=== PATIENT | female | born 1960 | race Caucasian/White ===

== ENCOUNTER 2018-12-04 20:46 | Emergency (ER) | payer BC ==
[~2018-12-04] VITALS: Ht 167.6 cm; Wt 97.6 kg
[2018-12-04] MEDS ORDERED: LIDOCAINE 2% 20 ML VIAL. IJ ONE (21:45)
[2018-12-04] MEDS ORDERED: LIDOCAINE 2%/EPI 1:100,000 20 ML VIAL. ONE (22:11)
[2018-12-04] MEDS ORDERED: LIDOCAINE 1% Multi-Dose 20 ML VIAL. ONE (22:11)
[2018-12-04] MEDS ORDERED: LIDOCAINE 1%/EPI 1:100,000 20 ML VIAL. ONE (22:11)
[2018-12-04] MEDS ORDERED: DIPHTH,PERTUSS(ACELL),TET TOX 0.5 ML DISP.SYRIN. VAX IM ONE (22:45)
[2018-12-04] MEDS ORDERED: AMOX1TAB61 PO (22:49)
--- NOTE | 2018-12-04 22:49 | PHYS DOC ---
Adult General Chief Complaint Chief Complaint: ANIMAL BITE HPI HPI Patient is a 58 year old female who presents with complaint of dog bite to the right forearm. The patient states that she was bitten by her own dog after she was trying to help her dog get untangled from another dog. The dog's accidenta lly tangled or collars together and she was trying to help them when one of the dogs bit her on the right forearm. Patient suffered a laceration to the volar aspect of the right forearm as well as an additional adjacent puncture wound. Bleeding controlled prior to arrival. Patient states that her dogs vaccinations are up-to-date. States that her tetanus vaccination was last given approximately 7 years ago. Denies any difficulty with range of motion in the right hand or wrist. Due to the when the patient came to the emergency department for concern of need for closure. Review of Systems Review of Systems Constitutional: Denies fever or chills [] Eyes: Denies change in visual acuity, redness, or eye pain [] HENT: Denies nasal congestion or sore throat [] Respiratory: Denies cough or shortness of breath [] Cardiovascular: Denies chest pain or edema[] GI: Denies abdominal pain, nausea, vomiting, bloody stools or diarrhea [] : Denies dysuria or hematuria [] Musculoskeletal: Denies back pain or joint pain [] Integument: Laceration to right forearm[] Neurologic: Denies headache, focal weakness or sensory changes [] All other systems were reviewed and found to be within normal limits, except as documented in this note. Current Medications Current Medications Current Medications Medications (Trade) Dose Ordered Sig/[facility] Start Time Stop Time Status Last Admin Dose Admin Lidocaine HCl 20 ml STK-MED ONCE 12/04/18 22:11 12/04/18 22:12 DC Lidocaine/ Epinephrine (Xylocaine 1%-Epi 1:100,000) 20 ml STK-MED ONCE 12/04/18 22:11 12/04/18 22:12 DC Lidocaine/ Epinephrine (Xylocaine 2%-Epi 1:100,000) 20 ml STK-MED ONCE 12/04/18 22:11 12/04/18 22:12 DC Allergies Allergies Allergies Coded Allergies Type Severity Reaction Last Updated Verified No Known Drug Allergies 12/04/18 No Physical Exam Physical Exam Constitutional: Well developed, well nourished, no acute distress, non-toxic appearance. [] HENT: Normocephalic, atraumatic, bilateral external ears normal, oropharynx moist, no oral exudates, nose normal. [] Eyes: PERRLA, EOMI, conjunctiva normal, no discharge. [] Neck: Normal range of motion, no tenderness, supple, no stridor. [] Cardiovascular:Heart rate regular rhythm, no murmur [] Lungs & Thorax: Bilateral breath sounds clear to auscultation [] Abdomen: Bowel sounds normal, soft, no tenderness, no masses, no pulsatile masses. [] Skin: Warm, dry, no erythema, no rash. [] Back: No tenderness, no CVA tenderness. [] Extremities: No tenderness, 3 cm transverse laceration to the distal third of the volar aspect of right forearm with exposed subcutaneous tissue, no obvious tendon injury, adjacent puncture wound along medial aspect of the distal third of the right forearm, no cyanosis, no clubbing, ROM intact, no edema. [] Neurologic: Alert and oriented X 3, normal motor function, normal sensory function, no focal deficits noted. [] Current Patient Data Vital Signs Vital Signs Date Time Temp Pulse Resp B/P (MAP) Pulse Ox O2 Delivery O2 Flow Rate FiO2 12/04/18 23:43 97.8 111 20 93 Lab Results Not performed EKG EKG Not performed[] Radiology/Procedures Radiology/Procedures Indication: Right forearm laceration Procedure: The patient was placed in the appropriate position and anesthesia ar ound the laceration was achieved with injection of lidocaine 2%. The area was then irrigated with saline. The laceration was closed using 4-0 Ethilon simple interrupted sutures. The wound area was then dressed with Telfa and Kerlex. Total repaired wound length: 3 cm. Other Items: Total suture count: 3 The patient tolerated the procedure without difficulty. Complications: None.[] Course & Med Decision Making Course & Med Decision Making Pertinent Labs and Imaging studies reviewed. (See chart for details) The patient underwent laceration repair as outlined in the procedure note. Tetanus immunization was updated in the emergency department. The patient was discharged with prescription for Augmentin for infection prophylaxis. Advised follow-up in 10-12 days with primary doctor for removal of sutures. Patient notes that she is having surgery on Saturday on her hip. Advised that she call her orthopedic surgeon tomorrow to discuss her recent visit to see if she is still candidate for surgery on Saturday. Advised return to emergency department for any worsening symptoms per patient was understanding and in agreement with treatment plan.[] Dragon Disclaimer Dragon Disclaimer This electronic medical record was generated, in whole or in part, using a voice recognition dictation system. Departure Departure: Impression: Primary Impression: Dog bite of forearm Disposition: HOME, SELF-CARE Condition: IMPROVED Referrals: MARC BRIGGS MD (PCP) Patient Instructions: Animal Bite, Laceration Care, Adult Additional Instructions: Follow-up with your primary doctor in 10-12 days for removal of your stitches. Return to the emergency department for any worsening symptoms. Scripts Amoxicillin/Potassium Clav (AUGMENTIN [id number] TABLET) 1 Each Tablet 1 TAB PO BID, #10 TAB Prov: LARRY TORREZ MD 12/04/18 Problem Qualifiers Primary Impression: Dog bite of forearm Encounter type: initial encounter Laterality: right Qualified Codes: S51.851A - Open bite of right forearm, initial encounter; W54.0XXA - Bitten by dog, initial encounter LARRY TORREZ MD December 04, 2018 22:49
[2018-12-04] MEDS ORDERED: AMOXICILLIN/K CLAV 875/125MG TABLET. PO ONE (23:00)
[2018-12-04 23:43] VITALS: BP 153/93
== END 2018-12-04 22:52 | disposition home or self-care (01) ==
LOC: ER 21:02
DX: S51.811A Laceration without foreign body of right forearm, initial encounter (principal); W54.0XXA Bitten by dog, initial encounter; Y93.89 Activity, other specified; Y92.89 Other specified places as the place of occurrence of the external cause; Y99.8 Other external cause status
CPT/HCPCS: 12002; 90471; 90715; 99283; J2001

== ENCOUNTER → 2019-02-03 | Outpatient (CLI) | payer BC ==
[~2019-02-03] MED LIST: AMOX1TAB61 PO
--- NOTE | 2019-02-03 10:34 | RAD ---
Bone densitometry 02/03/2019 1:00 PM Indication: Adult fracture. History of osteoporosis. Comparison Study: Bone densitometry May 17, 2013. Discussion: Bone Densitometry was performed with dual photon absorption of the lumbar spine and proximal femurs. Lumbar Spine: Bone average density is 1.115 g/cm2 for L1-L4. T-Score is -0.5. (Prior T score at L2-L4 is -2.3) Right femoral neck: Bone average density is 0.732g/cm2. T-Score is -1.7. (Prior T score of the proximal right femur -0.8) IMPRESSION: Improved bone mineral density, in the lumbar spine. Persistent osteopenia based on bone mineral density measurements of the right femoral neck which have decreased in the interim. Note: Definitions established by the World Health Organization: Normal: T-score is -1.0 or above. Osteopenia: T-score is between -1.0 and -2.5. Osteoporosis: T-score is -2.5 or below. Electronically signed by: Sylvain Estrella MD (02/03/2019 10:31 AM) [id number]
== END | disposition home or self-care (01) ==
LOC: DXRAD 09:21
PROVIDERS: ATTEND Family Medicine
DX: M85.88 Other specified disorders of bone density and structure, other site (principal); M81.0 Age-related osteoporosis without current pathological fracture
CPT/HCPCS: 77080